=== PATIENT | male | born 1945 | race Caucasian/White ===

== ENCOUNTER 2023-12-23 12:23 | Emergency (ER) | payer OTHER, SELFPAY ==
[2023-12-23 12:31] VITALS: BP 158/74
[2023-12-23] MEDS: ULTRAM 50 MG PO (15:32)
[2023-12-23] MEDS: LIDOCAINE 4% PATCH 1 PATCH TOPICAL (15:33)
[2023-12-23] MEDS: TYLENOL 1000 MG PO (15:33)
--- NOTE | 2023-12-23 16:17 | ED.GENMED ---
History of Present Illness
General
Chief Complaint: Back Pain
Time Seen by Provider: 12/23/23 14:05
Travel History
Have you had any contact with someone who has COVID-19?: No
Do you have any symptoms of coronavirus? Fever > 100 degrees, chills, cough, shortness of breath, sore throat, loss of taste or smell, muscle aches, or headache?: No
History of Present Illness
History of Present Illness:
78-year-old male with history of aortic stenosis status post AVR, congestive heart failure, hypertension, and hyperlipidemia presents to the emergency department for evaluation of left-sided low back pain radiating to the left leg. Has been ongoing
for the past 1 to 2 weeks. States the pain is minimal when he is at rest but increases with walking and he feels as though his left leg may give out. He did have a fall onto his buttocks approximately 2 weeks ago and pain began after that time.
Denies any pain sitting still in the exam bed currently. Denies any loss of urinary continence or urine retention.
Past History
Past History
ED Past Medical History: NIDDM and Other (chronic neck pain)
ED Past Surgical History: Cardiac
Patient has exhibited threatening behavior?: No
PSI?: No
Social History
Tobacco: Non-smoker
Alcohol: Occasional
Drug: None
Personal:
Living: with family
Review of Systems
Review of Systems
Allergies reviewed?: Yes
All Other Systems: ROS reviewed and negative except as documented in HPI and ROS
Phy Exam
Physical Exam
Physical Exam:
GEN: Well appearing, NAD, WDWN
HEENT: Oral mucosa moist, no scleral icterus
Cardiac: Regular rate
Lung: No respiratory distress, no tachypnea
MSK: No gross deformity or injuries. No reproducible tenderness to the lumbar spine, positive straight leg raise on the left at 15 degrees
Skin: Good color, no pallor or jaundice, no rashes
Neuro: AO x3, moves all extremities freely
Psych: Calm, cooperative
Course
Orders/Labs/Results
Orders:
Orders
12/23/23 14:20
CR Lumbar Spine Comp Min 4 Vw* Urgent
Comment:
Reason For Exam: back pain after a fall
12/23/23 15:21
Acetaminophen [Tylenol] 1,000 mg PO NOW STA
Lidocaine [Lidocaine 4% Patch] 1 patch TOPICAL NOW STA
Tramadol HCl [Ultram] 50 mg PO NOW STA
Vital Signs
Initial and Last Documented VS:
Initial Vital Signs
Temp Pulse Resp BP Pulse Ox
97.6 F 70 18 158/74 97
12/23/23 12:31 12/23/23 12:31 12/23/23 12:31 12/23/23 12:31 12/23/23 12:31
Last Documented Vital Signs
Temp Pulse Resp BP Pulse Ox
97.6 F 70 18 158/74 97
12/23/23 12:31 12/23/23 12:31 12/23/23 12:31 12/23/23 12:31 12/23/23 12:31
MDM/Problems Addressed
MDM/Problems Addressed:
X-rays lumbar spine independently interpreted by me negative for acute osseous abnormality however significant degenerative changes noted. Symptoms most likely advertising account representative of lumbar radiculopathy due to potential disc herniation versus spinal
stenosis. Will start the patient on tramadol, NSAIDs are contraindicated given his chronic kidney disease and prior cardiac disease, will recommend outpatient orthopedic and physical therapy follow-up
*Critical Care Note
Total Time (30-74mins, 75-104mins- exclusive of procedures): Not Applicable
ED Attending Note
-
Portions of this chart may have been created with voice recognition software.� Occasional wrong word or��sound alike� substitutions may have occurred due to the inherent limitations of voice recognition software.
Discharge Plan
Departure
Patient Disposition: Home (Routine Discharge)
Date of Disposition: 12/23/23
Time of Disposition: 16:17
Patient with high blood pressure during this ER visit?: No
Discharge Problem:
Sciatica of left side
Instructions: Sciatica (DC)
Prescriptions:
New
tramadol 50 mg tablet
50 mg PO Q8H PRN (Reason: Pain) Qty: 10 0RF
No Action
pantoprazole 40 MG tablet,delayed release (DR/EC)
40 mg PO DAILY
aspirin 81 MG tablet,chewable
81 mg PO HS
furosemide 20 MG tablet
40 mg PO DAILY Qty: 60 0RF
Rx Instructions:
take 2 tabs (40 mg total)--start tomorrow 03/02/22
metoprolol succinate 25 mg Tablet Extended Release 24 Hr
12.5 mg PO BID Qty: 60 0RF
Januvia 50 mg Tablet
100 mg PO DAILY Qty: 60 0RF
docusate sodium [Colace] 100 mg capsule
100 mg PO BID Qty: 60 0RF
polyethylene glycol 3350 [Miralax] 17 gram/dose powder
4 g PO DAILY Qty: 119 0RF
Referrals:
Stephan Morales MD [Family Provider] -
John Parmar, DO [Non-Admitting Privileges] -
Activity Restrictions/Additional Instructions:
Follow-up with your primary care doctor as well as orthopedics/pain and spine to discuss next steps, you may benefit from a physical therapy referral
Interventions
Interventions:
*Risk Screen - Suicide Last Done: 12/23/23 12:31
*General Assessment Last Done: 12/23/23 12:31
*Neglect/Abuse Screening Last Done: 12/23/23 12:31
Discharge Date and Time
Print Language: CITIZEN OF [place]
== END 2023-12-23 16:36 | disposition home or self-care (01) ==
LOC: EMR 12:23
PROVIDERS: EMERGENCY PHYSICIAN Emergency Medicine; FAMILY PHYSICIAN Internal Medicine
DX: M54.42 Lumbago with sciatica, left side (principal); N18.9 Chronic kidney disease, unspecified
CPT/HCPCS: 99283; 72110

== ENCOUNTER → 2025-01-09 08:14 | Outpatient (REF) | payer OTHER, SELFPAY ==
[2025-01-09 09:48] LABS: Blood Urea Nitrogen 20 mg/dl (9-20); Calcium 9.1 mg/dl (8.4-10.2); Carbon Dioxide 27 mmol/L (22-30); Chloride 107 mmol/L (98-107); Glucose 134 mg/dl (70-99); HDL Cholesterol 35 mg/dl; LDL Cholesterol, Calculated 68 mg/dl; Potassium 5.1 mmol/L (3.5-5.1); Sodium 144 mmol/L (135-145); Total Cholesterol 139 mg/dl (50-199); Triglyceride 184 mg/dl (10-149); Very Low Density Lipoprotein 36 mg/dl (0-30); eGFR 47.36
[2025-01-09 10:30] LABS: Glycohemoglobin (HgbA1c) 6.7 % (4.0-5.6)
== END ==
LOC: REG 08:14
PROVIDERS: ATTENDING PHYSICIAN Internal Medicine Cardiovascular Disease; FAMILY PHYSICIAN Internal Medicine
DX: I50.32 Chronic diastolic (congestive) heart failure (principal); E78.5 Hyperlipidemia, unspecified; E11.9 Type 2 diabetes mellitus without complications
CPT/HCPCS: 36415; 80048; 80061; 83036

== ENCOUNTER 2025-06-13 13:01 | Inpatient (IN) | payer OTHER, SELFPAY ==
[2025-06-13] VITALS (8 sets, daily range): BP systolic 134–177; BP diastolic 63–88; BMI 37.7
--- NOTE | 2025-06-13 09:38 | ED.GENMED ---
History of Present Illness
<Pradip Campo PA-C - Last Filed: 06/13/25 14:37>
General
Chief Complaint: Rectal Bleeding
Source: patient
Time Seen by Provider: 06/13/25 09:24
History of Present Illness
History of Present Illness:
79-year-old male with past medical history of previous [place], aortic stenosis, valvular disease status post aortic valve replacement, CHF, GERD, fyu-uhaygvr-enqaiyafs diabetes presenting to the emergency department for evaluation of 4 episodes of
bright red blood per rectum since 2 AM, last being approximately 1 hour prior to arrival to the emergency department. Patient states he is not having any pain associated with this, denies any history of similar. Patient is on three 81 mg aspirin
tablets per day but no other anticoagulant medications. Currently denying any chest pain, shortness of breath, palpitations, diaphoresis, exertional dyspnea, orthopnea, abdominal pain, nausea, vomiting, hematemesis. He notes that he has had
colonoscopies before without any abnormal findings reported. Social history was noted for quitting smoking in the 1960s.
Past History
<Pradip Campo PA-C - Last Filed: 06/13/25 14:37>
Past History
ED Past Medical History: CAD, CHF, HTN, Hypercholesterolemia, NIDDM, [place], Valvular disease and Other (chronic neck pain)
ED Past Surgical History: Cardiac and Other
Patient has exhibited threatening behavior?: No
PSI?: No
Social History
Tobacco: Former smoker
Alcohol: None
Drug: None
Personal:
Living: with family
Review of Systems
<Pradip Campo PA-C - Last Filed: 06/13/25 14:37>
Review of Systems
All Other Systems: ROS reviewed and negative except as documented in HPI and ROS
Phy Exam
<Pradip Campo PA-C - Last Filed: 06/13/25 14:37>
Physical Exam
Physical Exam:
GENERAL: Alert , in no apparent distress
EYE: clear conjunctiva b/l
HEAD: NCAT
ENT: mmm.
CARDIAC: Regular rate and rhythm .
LUNGS: Clear breath sounds bilaterally, no acute respiratory distress, no wheezes/rales/rhonchi
ABDOMEN: Soft, without focal tenderness, no r/g, no cvat
RECTAL EXAM: Maroon blood, no stool, no external hemorrhoids
NEUROLOGICAL: Alert and oriented
SKIN: Warm and dry, skin intact.
MUSCULOSKELETAL: No edema, well perfused.
PSYCH: Normal and appropriate interaction.
Scores
<Pradip Campo PA-C - Last Filed: 06/13/25 14:37>
Heart Failure Risk
Heart Failure Risk Score: Not Applicable
Heart Score for Chest Pain Patients
STEMI patient?: Not applicable
Withdrawal Assessment of Alcohol
Withdrawal Assessment Completed?: Not applicable
Course
<Pradip Campo PA-C - Last Filed: 06/13/25 14:37>
Orders/Labs/Results
Orders:
Orders
06/13/25 09:37
CT Angio Abd/Pelvis w/wo IV [CT Abd/pelvis Angio W/wo Iv] Urgent
Comment:
Reason For Exam: multiple episodes BRBPR
06/13/25 09:38
Cardiac Monitoring- Treatment ONCE
06/13/25 09:51
Type+Screen Urgent
Complete Blood Count/With Diff Urgent
Comprehensive Metabolic Panel Urgent
NT-proBNP Urgent
Comment: ADD ON
PTT Urgent
Prothrombin Time Urgent
TSH Urgent
Comment: ADD ON
06/13/25 12:34
Add On- LAB Routine
Tests Added?: NT-proBNP
06/13/25 12:36
Admit/Transfer Patient As Directed
Co-Sign Provider:
Level of Care: Inpatient admission
Assign to:: Telemetry
Physician / Group: Roopa
Diagnosis: Acute lower GI bleed, acute CHF
Reason for Telemetry: Subacute Heart Failure
Date to Stop Telemetry: 06/15/25
Time to Stop Telemetry: 11:00
Reason for Hospitalization: GI bleed, IV Lasix
Expected length of stay greater than two midnights?: Yes
ELOS- Estimated Length of Stay in days: 3
I certify the patient meets the requirements for IP care: Yes
06/13/25 12:37
PRN Pain Medication Management As Directed
May give lesser potent ordered pain med per pt: Yes
preference::
Protocol:: Medication orders for pain may be administered in a
manner that supports deferring to patient preference
when the pt is:
- Requesting an ordered lesser potent pain medication.
Least to most potent pain medications are defined
as: acetaminophen < NSAID < tramadol < opioids
(morphine, oxycodone, hydromorphone).
- Requesting a lesser dose of the same medication IF
ORDERED.
- Requesting a less intrusive route of administration
if both routes are prescribed by the provider (PO <
IV).
06/13/25 12:38
Code Status As Directed
Resuscitation Status: Full Code
06/13/25 12:50
Furosemide [Lasix] 40 mg IV NOW STA
06/13/25 12:52
Add On- LAB Routine
Tests Added?: TSH
06/13/25 12:54
EKG [Electrocardiogram (*1)] Routine
Reason for Study: Shortness of Breath
06/15/25 11:00
DC Protocol for Telemetry ONCE
Abnormal Lab Results
06/13/25
09:51
WBC 11.9 H 10^3/uL
(4.8-10.8)
MCHC 32.4 L g/dL
(33.0-37.0)
RDW 14.8 H %
(11.5-14.5)
Absolute Neuts (auto) 9.2 H 10^3/uL
(1.4-6.5)
Absolute Monos (auto) 0.8 H 10^3/uL
(0.1-0.6)
Neutrophils % 77.5 H %
(42.2-75.2)
Lymphocytes % 12.7 L %
(20.5-51.1)
Chloride 109 H mmol/L
(98-107)
Creatinine 1.4 H mg/dL
(0.7-1.3)
Glucose 170 H mg/dl
(70-99)
06/13/25 09:51
06/13/25 09:51
Vital Signs
Initial and Last Documented VS:
Initial Vital Signs
Temp Pulse Resp BP Pulse Ox
98.4 F 79 16 148/72 95
06/13/25 09:17 06/13/25 09:17 06/13/25 09:17 06/13/25 09:17 06/13/25 09:17
Last Documented Vital Signs
Temp Pulse Resp BP Pulse Ox
98.4 F 71 16 134/64 93
06/13/25 09:17 06/13/25 14:30 06/13/25 14:30 06/13/25 13:41 06/13/25 10:30
<Christian Elam, DO - Last Filed: 06/13/25 10:18>
Orders/Labs/Results
Orders:
Orders
06/13/25 09:37
CT Angio Abd/Pelvis w/wo IV [CT Abd/pelvis Angio W/wo Iv] Urgent
Comment:
Reason For Exam: multiple episodes BRBPR
06/13/25 09:38
Cardiac Monitoring- Treatment ONCE
06/13/25 09:51
Type+Screen Urgent
Complete Blood Count/With Diff Urgent
Comprehensive Metabolic Panel Urgent
NT-proBNP Urgent
Comment: ADD ON
PTT Urgent
Prothrombin Time Urgent
TSH Urgent
Comment: ADD ON
06/13/25 12:34
Add On- LAB Routine
Tests Added?: NT-proBNP
06/13/25 12:36
Admit/Transfer Patient As Directed
Co-Sign Provider:
Level of Care: Inpatient admission
Assign to:: Telemetry
Physician / Group: Roopa
Diagnosis: Acute lower GI bleed, acute CHF
Reason for Telemetry: Subacute Heart Failure
Date to Stop Telemetry: 06/15/25
Time to Stop Telemetry: 11:00
Reason for Hospitalization: GI bleed, IV Lasix
Expected length of stay greater than two midnights?: Yes
ELOS- Estimated Length of Stay in days: 3
I certify the patient meets the requirements for IP care: Yes
06/13/25 12:37
PRN Pain Medication Management As Directed
May give lesser potent ordered pain med per pt: Yes
preference::
Protocol:: Medication orders for pain may be administered in a
manner that supports deferring to patient preference
when the pt is:
- Requesting an ordered lesser potent pain medication.
Least to most potent pain medications are defined
as: acetaminophen < NSAID < tramadol < opioids
(morphine, oxycodone, hydromorphone).
- Requesting a lesser dose of the same medication IF
ORDERED.
- Requesting a less intrusive route of administration
if both routes are prescribed by the provider (PO <
IV).
06/13/25 12:38
Code Status As Directed
Resuscitation Status: Full Code
06/13/25 12:50
Furosemide [Lasix] 40 mg IV NOW STA
06/13/25 12:52
Add On- LAB Routine
Tests Added?: TSH
06/13/25 12:54
EKG [Electrocardiogram (*1)] Routine
Reason for Study: Shortness of Breath
06/15/25 11:00
DC Protocol for Telemetry ONCE
Abnormal Lab Results
06/13/25
09:51
WBC 11.9 H 10^3/uL
(4.8-10.8)
MCHC 32.4 L g/dL
(33.0-37.0)
RDW 14.8 H %
(11.5-14.5)
Absolute Neuts (auto) 9.2 H 10^3/uL
(1.4-6.5)
Absolute Monos (auto) 0.8 H 10^3/uL
(0.1-0.6)
Neutrophils % 77.5 H %
(42.2-75.2)
Lymphocytes % 12.7 L %
(20.5-51.1)
Chloride 109 H mmol/L
(98-107)
Creatinine 1.4 H mg/dL
(0.7-1.3)
Glucose 170 H mg/dl
(70-99)
06/13/25 09:51
06/13/25 09:51
Vital Signs
Initial and Last Documented VS:
Initial Vital Signs
Temp Pulse Resp BP Pulse Ox
98.4 F 79 16 148/72 95
06/13/25 09:17 06/13/25 09:17 06/13/25 09:17 06/13/25 09:17 06/13/25 09:17
Last Documented Vital Signs
Temp Pulse Resp BP Pulse Ox
98.4 F 71 16 134/64 93
06/13/25 09:17 06/13/25 14:30 06/13/25 14:30 06/13/25 13:41 06/13/25 10:30
<Pradip Campo PA-C - Last Filed: 06/13/25 14:37>
MDM/Problems Addressed
Differential Diagnosis Includes:
Internal versus external hemorrhoidal bleeding
Diverticular bleed
Erosive gastritis
Peptic ulcer disease
Anemia
Mesenteric ischemia
Colitis
MDM/Problems Addressed:
79-year-old male presenting to the emergency department for evaluation of 4 episodes of bright red blood per rectum since 2 AM, no pain, currently hemodynamically stable and in no acute distress. Will check labs, CT angio of the abdomen and pelvis
ordered for possible active GI bleeding. Will closely monitor patient. Anticipate admission given age and amount of blood reported
Chronic conditions affecting care: CAD
<Pradip Campo PA-C - Last Filed: 06/13/25 14:37>
*Radiology
Radiology exam reviewed: radiology read reviewed
*Pulse Oximetry
SaO2: 95
Oxygen Mode of Delivery: Room air
Patient hypoxic: no
*Critical Care Note
Total Time (30-74mins, 75-104mins- exclusive of procedures): Not Applicable
Data Reviewed
Review of Other/Old Records Reveals: Records
Source: patient, records and family
<Pradip Campo PA-C - Last Filed: 06/13/25 14:37>
Comment
Comment:
Patient had a colonoscopy here in May 2023 which showed the following:
Findings:
The perianal and digital rectal examinations were normal.
A 3 mm polyp was found in the ascending colon. The polyp was sessile.
The polyp was removed with a jumbo cold forceps. Resection and retrieval
were complete. Estimated blood loss was minimal.
Multiple small-mouthed diverticula were found in the sigmoid colon and
descending colon.
Internal hemorrhoids were found during retroflexion. The hemorrhoids
were small.
The exam was otherwise without abnormality.
Patient Management
Discussion with other providers: Hospitalist and [employer]
Escalation/DeEscalation of care consider admission/obs:
Patients work up reassuring however given age, high dose ASA and multiple episodes of BRBPR decision was made to closely observe patient. I still have high degree of suspicion for diverticular bleed and suspect patient will have a drop in hgb over
next 24 hours. GI team aware and will see in consult. Hospitalist team to admit
ED Attending Note
<Pradip Campo PA-C - Last Filed: 06/13/25 14:37>
-
Portions of this chart may have been created with voice recognition software.� Occasional wrong word or��sound alike� substitutions may have occurred due to the inherent limitations of voice recognition software.
<Christian Elam DO - Last Filed: 06/13/25 10:18>
ED Attending Note
Patient seen and examined by attending physician: Yes
I performed the substantive portion of visit, reviewed & personally made and approve the management plan that is documented in note by myself or DONOVAN.: Yes
ED Attending Note:
I agree with Facundo's note
Patient presents after having several episodes of bright red blood per rectum. No abdominal pain. No chest pain shortness of breath or dizziness. Patient has been taking 225 aspirin twice a day for back pain
General: Awake, Alert, Oriented X3. No acute distress.
Vitals: unremarkable
Head: Atraumatic
Eyes: Pupils equal, EOMI
Throat: Airway intact, no exudates
Neck: Trachea midline
Lungs: Clear and equal b/l
Heart: Regular rate, no murmurs
Abd: Soft, large protuberant abdomen which is nontender, No pulsatile mass
Neuro: Nonfocal
Extremities: pulses equal b/l, 2+ edema
Type and screen, CT angio to exclude active bleeding.
Discharge Plan
Departure
Patient Disposition: Admit
Date of Disposition: 06/13/25
Time of Disposition: 11:36
Presentation/result/management discussed w/ accepting MD/DO: Hospitalist
Discharge Problem:
Acute gastrointestinal bleeding
Interventions
Interventions:
*Risk Screen - Suicide Last Done: 06/13/25 09:17
*General Assessment Last Done: 06/13/25 09:55
*Neglect/Abuse Screening Last Done: 06/13/25 09:17
*ED- Fall Risk Assessment Last Done: 06/13/25 09:55
*ED COVID-19 Vaccine History Last Done: 06/13/25 09:55
*ED Influenza Vaccine History Last Done: 06/13/25 09:55
MW-Siyvuh-Vldmybnilv Assessment Last Done: 06/13/25 09:55
ED- Cardiac Assessment Last Done: 06/13/25 09:55
ED- Pulmonary Assessment Last Done: 06/13/25 09:55
[2025-06-13 09:59] LABS: Hematocrit 45.0 % (39.0-52.0); Hemoglobin 14.6 g/dL (13.0-18.0); Mean Corp Hgb Conc. 32.4 g/dL (33.0-37.0); Mean Corpuscular Volume 85.9 fL (80.0-94.0); Nucleated Red Blood Cells % 0 % (-); Platelet Count 248 10^3/uL (130-400); Red Cell Dist. Width 14.8 % (11.5-14.5)
[2025-06-13 10:19] LABS: INR 0.98; PT 13.5 Sec (11.4-14.6)
[2025-06-13 10:20] LABS: APTT 29.8 Sec (23.4-35.0)
[2025-06-13 10:25] LABS: ALT (SGPT) 22 U/L (0-50); AST (SGOT) 20 U/L (17-59); Albumin 4.2 g/dl (3.5-5.0); Alkaline Phosphatase 100 U/L (38-126); Calcium 8.6 mg/dl (8.4-10.2); Carbon Dioxide 23 mmol/L (22-30); Chloride 109 mmol/L (98-107); Glucose 170 mg/dl (70-99); Potassium 4.7 mmol/L (3.5-5.1); Sodium 140 mmol/L (135-145); Total Protein 7.2 g/dl (6.3-8.2); eGFR 51.45
[2025-06-13 10:57] LABS: Blood Urea Nitrogen 19 mg/dl (9-20)
--- NOTE | 2025-06-13 12:02 | CON.GI ---
Addendum entered and electronically signed by Bindu Cruz MD 06/13/25 16:00:
He was on pantoprazole prior to admission and did not stop it while he was taking the aspirin also will continue
Addendum entered and electronically signed by Bindu Cruz MD 06/13/25 15:58:
I saw and examined the patient.
The LOAN MANAGER's note was reviewed and I agree with the note.
Comment: This is a 79-year-old male with past medical history as listed below presented with symptoms of painless rectal bleeding since last night he had 4 episodes of rectal bleeding and presented to the ER. He has been taking aspirin 325 mg twice
daily for the past 2 weeks because of joint pains. He currently denies any symptoms of dyspepsia, no belching, no abdominal pain, no nausea vomiting or hematemesis. On admission his hemoglobin was stable at 14.6 and his BUN was 19 and his INR is
normal also. He just now had another bowel movement which he says was brown. He sees Dr. Landaverde in the office and had a colonoscopy and endoscopy in May 2023. The endoscopy was done with Dr. Landaverde for dysphagia symptoms and was pretty
unremarkable other than gastric polyps which were benign and esophageal biopsies were negative for EOE. His colonoscopy had to be performed the next day because he was not cleaned out and that was done with Dr. Deluca and he had a diminutive
ascending colon polyp which was a tubular adenoma, diverticulosis in the sigmoid and descending colon and internal hemorrhoids.
Assessment and plan painless rectal bleeding 3-4 episodes since last night most likely related to diverticulosis exacerbated by the recent use of aspirin 325 twice daily for 2 weeks. He denies constipation prior to admission or straining. Doubt
upper GI bleed he is hemodynamically stable, BUN is normal, hemoglobin is normal no dyspepsia sx. Will start him on Protonix because of the recent excessive use of aspirin it is possible that he may have gastritis or PUD. CT on admission was also
negative for active bleeding
2. gallstones noted on CTA currently asymptomatic from it
3. He also had a 1.3 cm pulmonary nodule follow-up with PCP for outpatient CT chest to follow-up on this.
Original Note:
Consultation
-
Date/Time Consultation Requested: 06/13/251129
Date/Time Consultation Performed: 06/13/25 1145
Requesting Provider: CAROLINA Hsu
Performing Provider: Dr. Cruz/Tito Richter
Reason for Consultation: GI bleed
Medical History
Chief Complaint / HPI
Chief Complaint: increased LFT's
History of Present Illness:
79 yo presents with hx NIDDM, ASCVD, with prior AVR, chronic lower extremity edema, medication noncompliance, abdominal distention sciatica, CHF, chronic back pain, adenomatous colon polyps, fatty liver on ultrasound 2022, cholelithiasis who
presents to the emergency room with bright red blood per rectum. Asked to evaluate for the same. The patient states that he has been having issues with his left foot 'giving out on him'. He sought the assistance of a chiropractor in [place]. It
was recommended that he take Tylenol. Unfortunately he took aspirin 325 mg twice a day for the past 2 weeks instead. He usually has a soft formed daily bowel movement once to twice a day. He states yesterday he had a solid bowel movement however
he got up at 11 PM last night with the urgency to have a bowel movement. He states that this was solid with then loose brown stool with bright red blood mixed in it. He then had 3-4 episodes of just bright red blood since that time. They were
able to show me pictures that it was just bright red blood. Some small clots within it. He did have an episode of some lightheadedness with the fourth episode this morning. At that point they proceeded to come to the emergency room for further
evaluation. The patient denied any prior history of rectal bleeding prior to this. The patient had both endoscopy and colonoscopy in May 2023. Colonoscopy revealed a small tubular adenoma and diverticulosis in the sigmoid, descending and
transverse colon. Endoscopy was performed for dysphagia. Blood was found in the esophagus, 1 cm hiatal hernia. Normal esophagus. Normal stomach. Multiple gastric polyps which were biopsied. Normal examined duodenum. The patient has had no
further episodes of bleeding since arrival. Baseline hemoglobin is usually in the 13-14 range. Currently labs WBC 11.9, hemoglobin 14.6, hematocrit 45.0, platelets 248, PT 13.5, INR 0.98, sodium 140, potassium 4.7, BUN 19, creatinine 1.4, glucose
170, total bilirubin 1.1, AST 20, ALT 20, alk phos 100, proBNP pending. Patient does not take his medications as prescribed. He states he last took his diuretic over a week ago. He does have lower extremity edema. CT angio abdomen and pelvis
shows no evidence for active GI bleeding. Colonic diverticulosis. Cholelithiasis. 1.3 cm solid pulmonary nodule in the right middle lobe. Recommend follow-up chest CT on routine basis. The patient quit smoking and drinking in 1985. Other than
the aspirin no other NSAIDs.
Past Medical History
Past Medical History: Arrhythmias (afib post -op isolated ), CHF, HTN, NIDDM and Other (ASCVD, aortic stenosis, obesity, fatty liver)
Past Surgical History: Cardiac (AVR)
Social History
Tobacco: Non-Smoker
Alcohol: Other (some ETOH years ago none currently)
Personal:
Living: With Family
Employment: Retired
Family History
Family History: Other (father with colon CA)
Allergies / Home Medications
Allergy/AdvReac Type Severity Reaction Status Date / Time
shellfish derived Allergy Swelling Verified 06/13/25 09:16
�Medication �Instructions �Recorded
aspirin 325 mg tablet 325 mg PO BID 06/13/25
atorvastatin 80 mg tablet (Lipitor) 80 mg PO QPM 06/13/25
dapagliflozin propanediol 10 mg 10 mg PO DAILY 06/13/25
tablet (Farxiga)
glimepiride 1 mg tablet 1 mg PO DAILY 06/13/25
pantoprazole 40 mg tablet,delayed 40 mg PO DAILY 06/13/25
release (Protonix)
Review of Systems
-
All other systems: A 12 pt ROS was Negative except as stated above in HPI
Vital Signs
Temp Pulse Resp BP Pulse Ox
98.4 F 68 19 141/71 93
06/13/25 09:17 06/13/25 10:30 06/13/25 10:30 06/13/25 10:00 06/13/25 10:30
Physical Exam
Exam
General: No Apparent Distress
HEENT: Anicteric
Respiratory: Clear
Cardiac: Regular Rhythm
GI: Non Tender, Normal Bowel Sounds and Distended (Softly distended (patient states this is his usual))
Musculoskeletal: Edema (+1 bilateral lower extremity edema)
Skin: Warm and Dry
Neuro: AO x 3
Psych: Calm
Results
WBC 11.9 10^3/uL (4.8-10.8) H 06/13/25 09:51
Hgb 14.6 g/dL (13.0-18.0) 06/13/25 09:51
Hct 45.0 % (39.0-52.0) 06/13/25 09:51
MCV 85.9 fL (80.0-94.0) 06/13/25 09:51
Plt Count 248 10^3/uL (130-400) 06/13/25 09:51
Absolute Neuts (auto) 9.2 10^3/uL (1.4-6.5) H 06/13/25 09:51
PT 13.5 Sec (11.4-14.6) 06/13/25 09:51
INR 0.98 06/13/25 09:51
APTT 29.8 Sec (23.4-35.0) 06/13/25 09:51
Sodium 140 mmol/L (135-145) 06/13/25 09:51
Potassium 4.7 mmol/L (3.5-5.1) 06/13/25 09:51
Chloride 109 mmol/L (98-107) H 06/13/25 09:51
Carbon Dioxide 23 mmol/L (22-30) 06/13/25 09:51
BUN 19 mg/dl (9-20) 06/13/25 09:51
Creatinine 1.4 mg/dL (0.7-1.3) H 06/13/25 09:51
Calcium 8.6 mg/dl (8.4-10.2) 06/13/25 09:51
Total Bilirubin 1.1 mg/dl (0.2-1.3) 06/13/25 09:51
AST 20 U/L (17-59) 06/13/25 09:51
ALT 22 U/L (0-50) 06/13/25 09:51
Alkaline Phosphatase 100 U/L (38-126) 06/13/25 09:51
Diagnostic Image Results:
CTA abdomen and pelvis:No CTA evidence for active gastrointestinal bleeding during the course of this exam.
Colonic diverticulosis.
Cholelithiasis.
1.3 cm solid pulmonary nodule in the right middle lobe. Recommend initial follow-up with a chest CT on a routine basis.
Prior GI Procedures:
EGD: 05/30/2023 ([facility]) - Bleb found in the esophagus.
- 1 cm hiatal hernia.
- Normal esophagus.
- Normal stomach.
- Multiple gastric polyps. Biopsied. Negative H. pylori. Fundic gland polyp.
- Normal examined duodenum.
- Biopsies were taken with a cold forceps for
evaluation of eosinophilic esophagitis. Path negative EOE.
Colonoscopy: 05/31/2023 ([facility]_ - One 3 mm polyp in the ascending colon, removed with
a jumbo cold forceps. Resected and retrieved. Path: Tubular adenoma
- Diverticulosis in the sigmoid colon and in the
descending colon.
- Internal hemorrhoids.
- The examination was otherwise normal.
Assessment / Plan
-
79 yo presents with hx NIDDM, ASCVD, with prior AVR, chronic lower extremity edema, medication noncompliance, abdominal distention, sciatica, CHF, chronic back pain, adenomatous colon polyps, fatty liver on ultrasound 2022, cholelithiasis who
presents to the emergency room with bright red blood per rectum. Asked to evaluate for the same. Patient hemoglobin 14.6, vital signs stable. CTA abdomen and pelvis without signs of active bleeding. Up-to-date with EGD and colonoscopy (05/2023).
Diverticulosis sigmoid, transverse and descending colon. Recent significant aspirin use 325 mg twice daily x 2 weeks for orthopedic discomfort. Noncompliant with outpatient home medications. Does not take any PPI, Pepcid or Tums as an outpatient.
Impression:
GI bleed, red blood per rectum-> negative CTA (likely diverticular, possible angioectasias given history of aortic stenosis, less likely upper GI bleed given normal BUN)
Recent aspirin use, 325 mg twice daily x 2 weeks
Plan:
- Patient to be admitted to medical service
- Trend hemoglobin
- Start pantoprazole 40 mg daily
- Okay for clear liquids, no red
- Discussed with patient medication compliance.
- Will hold on any endoscopic procedures at present time, normal BUN.
- Further recommendations to be forthcoming
-
-
Thank you for consultation and allowing me to participate in the patient's care. Please call the continuity coordinator GI physician during the after hours with any questions or concerns.
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
[2025-06-13] MEDS: LASIX 40 MG IV (13:39)
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
--- NOTE | 2025-06-13 14:06 | CM ---
Patient seen at bedside with patient and son in ED. Patient states that he lives in a 2 story home and that he has a walker but does not use it. Patient has no PCP as the previous PCP retired and he has not found one that is 'mature'. Patient
agreed to accept list of options for PCP. Patient pharmacy is the [facility] on [address] in [place]. Patient indicated that he was independent of ADL's and IADL's. Patient plan is to eat soon and go home with no needs. CM will continue to follow for
discharge planning needs.
Plan; home with no needs; watch for VN needs pending medical treatment plan
[2025-06-13 15:39] LABS: TSH 1.69 uIU/ml (0.47-4.68)
[2025-06-13] MEDS: LIPITOR 80 MG PO (17:21)
[2025-06-13] MEDS: NOVOLOG FLEXPEN-LOW RESISTANCE SC (17:31)
[2025-06-13 17:44] LABS: Glucose - Point of Care 131 mg/dl (70-99)
--- NOTE | 2025-06-13 19:24 | W.PN.UPDATE ---
Update Note
Progress Note Update
79-year-old man admitted with hematochezia. He has been taking 650 mg of aspirin twice daily. Very pleasant but tangential and difficult to redirect, apparently had been taking Tylenol and then switched to aspirin because 'his left leg would go
out' associated with 5-10 falls over the last few months.
Also family has noted dyspnea on exertion
PMH/PSH: CABG/AVR for CAD and aortic stenosis 2019, prior myocardial infarction, remote paroxysmal A-fib, hypertension, hyperlipidemia, CKD, type 2 diabetes, HFpEF, right bundle branch block, cognitive impairment
Outpatient meds: Aspirin 325 mg 2 twice daily, atorvastatin 80 mg nightly, Farxiga, glimepiride, pantoprazole, furosemide has been prescribed but not taken. Family states he is noncompliant with medications
158/74, pulse 73, respiratory rate 18, afebrile, weight is 125.8 kg , in 2022 weight was 112.7 kg, pleasant, tangential very obese with protuberant abdomen, no distress, lungs are fairly clear, regular rate and rhythm without murmurs gallops,
abdomen obese, extremity 2+ to 3+ edema
CT of abdomen and pelvis 06/13/2025 cholelithiasis, renal cortical thinning, aortic atherosclerosis, diverticulosis, no obvious GI bleeding source identified with contrast
Echo January 2023: EF 65-70%, no LVH, normal diastolic function, dilated right ventricle, low normal RV systolic function, MAC, mild MR, bioprosthetic aortic valve, peak/mean gradient 19/9 mmHg, could not determine pulmonary artery pressure.
White count 11.9, hemoglobin 14.6, platelets 248, BUN/creatinine 19 and 1.4, potassium 4.7, proBNP 90
ECG: Pending
Impression:
Suspected acute on chronic presumably predominantly right heart failure, preserved LVEF
Hematochezia likely related to diverticulosis and aspirin
CAD/CABG/bioprosthetic aortic valve 2018
History of myocardial infarction
CKD IIIa
Diabetes
Hyperlipidemia
Hypertension
Postoperative atrial fibrillation
History of right bundle branch block
Likely cognitive impairment
Plan:
He presents with hematochezia likely related to aspirin ingestion. Will defer to hospitalist and GI regarding best management strategy. From cardiac standpoint, I would like him on aspirin 81 mg a day given his history of CABG.
Suspect underlying cognitive impairment, defer to hospitalist as to whether this needs to be investigated further. Likely a chronic issue.
He also presents with significant weight gain and presumed predominantly right heart failure based on his echo and normal proBNP. proBNP may be falsely normal in the setting of morbid obesity.
Agree with IV furosemide. Will check echo. As outpatient he was on dapagliflozin. Could be considered for spironolactone as well. Baseline creatinine is 1.4 with a potassium of 4.7.
His atrial fibrillation was postoperative only following CABG and AVR, likely does not require intervention. Will review EKG.
With regards to his left lower extremity issues, this sounds neuropathic, and was the reason for him taking aspirin apparently. Defer to hospitalist regarding whether this requires further evaluation.
Suspect long-term compliance may be an issue.
[2025-06-13 21:53] LABS: Glucose - Point of Care 182 mg/dl (70-99)
--- NOTE | 2025-06-13 23:04 | PTCARENOTE ---
BP was taken with a Dynamap, 177/80. TT house provider. Pt had nothing in MAR ordered for BP. Waited one hour and retook BP manually, 164/68. TT house provider again. No new orders given at this time.
[2025-06-14] VITALS (9 sets, daily range): BP systolic 108–186; BP diastolic 63–82; PULSE 71; O2SAT 95; BMI 36.1
--- NOTE | 2025-06-14 03:03 | PTCARENOTE ---
Addendum entered by Kendy Millan 06/14/25 03:56:
BP one hour later 152/64, taken manually. House provider TT. No new orders at this time.
Original Note:
BP 186/82, taken by dynamap. Manual BP was taken, 184/66. TT house provider. Told to recheck BP in one hour. No new orders given at this time. This is the second high BP for the pt within the past 4 hours.
[2025-06-14 05:44] LABS: Hematocrit 42.2 % (39.0-52.0); Hemoglobin 13.3 g/dL (13.0-18.0); Mean Corp Hgb Conc. 31.5 g/dL (33.0-37.0); Mean Corpuscular Volume 85.9 fL (80.0-94.0); Nucleated Red Blood Cells % 0 % (-); Platelet Count 223 10^3/uL (130-400); Red Cell Dist. Width 14.8 % (11.5-14.5)
[2025-06-14 06:00] LABS: Troponin I < 0.012 ng/ml
[2025-06-14 06:01] LABS: Blood Urea Nitrogen 25 mg/dl (9-20); Calcium 8.6 mg/dl (8.4-10.2); Carbon Dioxide 27 mmol/L (22-30); Chloride 106 mmol/L (98-107); Estimated Creatinine Clearance 60 ml/min; Glucose 126 mg/dl (70-99); Potassium 4.7 mmol/L (3.5-5.1); Sodium 139 mmol/L (135-145); eGFR 51.45
[2025-06-14 08:17] LABS: Glucose - Point of Care 130 mg/dl (70-99)
[2025-06-14] MEDS: NOVOLOG FLEXPEN-LOW RESISTANCE SC ×2 (09:00→16:55)
[2025-06-14] MEDS: ASPIR LOW (ENTERIC COATED) 81 MG PO (09:01)
[2025-06-14] MEDS: FARXIGA 10 MG PO (09:01)
[2025-06-14] MEDS: LASIX 40 MG IV (09:01)
[2025-06-14] MEDS: PROTONIX 40 MG PO (09:01)
[2025-06-14 10:37] LABS: Glycohemoglobin (HgbA1c) 7.1 % (4.0-5.6)
--- NOTE | 2025-06-14 10:38 | CARDSERVLU ---
Echocardiogram with [facility]ason completed after protocol screening completed. Allergies verified.
Patent IV site: _Right arm 18 G PC____
IV site flushed with 0.9% NaCl pre and post administration.
Diluted bolus method utilized to enhance visualization of ventricular deutsch.
Total volume given: ___5_ mL
Patient tolerated all procedures well without complications.
--- NOTE | 2025-06-14 11:15 | W.PN.HOSP.TC ---
Today's Communication/Plan
-
Continue Lasix
Advance diet
Echocardiogram
Assessment / Plan
Assessment / Plan
Gen-AAOx3, NAD
HEENT-NC, AT, anicteric, clear oral mm
Neck-supple
CV-reg, no M, +S1/S2
Lungs-clear B/L
Abd-soft, NT, ND
Ext-bilateral lower extremity edema
Musculoskeletal-no cyanosis, clubbing
Skin-warm and dry
Neuro-grossly non-focal
Psych-calm, cooperative
Acute lower GI bleed - Suspect etiology is high dose aspirin use as well as bleeding related to either diverticulosis or hemorrhoids.
CTA done today in the emergency room negative for active bleeding. Hemodynamically stable. Hemoglobin stable overnight, 13.3.
Spoke with GI, no plans for endoscopic evaluation. Advance to solid food.
Acute on chronic heart failure with preserved EF -due to noncompliance with home diuretics. Looks grossly volume overloaded. Mildly tachypneic. Clinically improving on IV Lasix, weight trending down. Lower extremity edema improving.
Last echocardiogram done in January 2023 showed LVEF 65 to 70%, normal regional wall motion, mild concentric LVH, bioprosthetic aortic valve.
Follow I's and O's, daily weights.
Echocardiogram done this morning, report pending. Cardiology following.
BNP is normal but could be suppressed in the setting of obesity.
Postoperative atrial fibrillation -this was noted after AVR and CABG. Decision made at the time not to anticoagulate. According to last cardiology note, patient maintaining sinus rhythm and will keep off anticoagulation for now unless atrial
fibrillation recurs.
Check EKG.
Bioprosthetic AVR
CKD 3a -stable.
CAD/CABG -stable.
DM 2 with hyperglycemia - hemoglobin A1c 7.1%. He has been on Farxiga and glimepiride prior to admission. Hold glimepiride and use low resistance NovoLog scale.
Essential hypertension -stable.
Hyperlipidemia -atorvastatin.
Obesity due to excess calories
Full code
PT/OT -Home health recommended.
Anticipated Discharge: Within 24 hours
Subjective/Interval History
-
Date of Service: June 14, 2025
Patient seen and examined. No complaints.
Objective Data
-
Labs:
Laboratory Results
06/14/25
05:19
WBC 11.2 H
Hgb 13.3
Hct 42.2
Plt Count 223
Sodium 139
Potassium 4.7
Chloride 106
Carbon Dioxide 27
BUN 25 H
Creatinine 1.4 H
Glucose 126 H
Calcium 8.6
Vital Signs:
Vital Signs
Temp Pulse Resp BP Pulse Ox
98 F 84 16 162/73 97
06/14/25 08:11 06/14/25 08:11 06/14/25 08:11 06/14/25 08:11 06/14/25 08:11
I&O
06/13/25 06/14/25 06/15/25
06:59 06:59 06:59
Intake Total 480 / 480
Output Total 300 / 300
Balance 180 / 180
Review of Systems
-
History Source: Patient
All other systems: Reviewed and negative
[2025-06-14 12:04] LABS: Glucose - Point of Care 164 mg/dl (70-99)
[2025-06-14] MEDS: NOVOLOG FLEXPEN-LOW RESISTANCE 1 UNITS SC (12:29)
--- NOTE | 2025-06-14 13:11 | W.PN.CARDCBS ---
Addendum entered and electronically signed by Virgilio Doshi MD 06/14/25 17:57:
79-year-old man admitted with hematochezia. He has been taking 650 mg of aspirin twice daily. Very pleasant but tangential and difficult to redirect, apparently had been taking Tylenol and then switched to aspirin because 'his left leg would go
out' associated with 5-10 falls over the last few months.
Also family has noted dyspnea on exertion
PMH/PSH: CABG/AVR for CAD and aortic stenosis 2019, prior myocardial infarction, remote paroxysmal A-fib, hypertension, hyperlipidemia, CKD, type 2 diabetes, HFpEF, right bundle branch block, cognitive impairment
Current meds: Atorvastatin 80 mg a day, dapagliflozin 10 mg a day, pantoprazole 40 mg a day, 40 mg IV daily, aspirin 81 mg a day
162/73, pulse 87, respiratory rate 16, afebrile, weight is 120.8 kg, if accurate down 5 kg, intake and output incomplete, no distress, states edema is somewhat better, exam unremarkable, lungs are clear, pleasant, regular rate and rhythm, no obvious
murmurs, abdomen obese, extremities with 1+ edema
White count 11.2, hemoglobin is 13.3, platelets are 223, BUN and creatinine are 25 and 1.4, stable, troponin is undetectable, proBNP was 90
Echo: Pending
Impression:
Suspected acute on chronic presumably predominantly right heart failure, preserved LVEF
Hematochezia likely related to diverticulosis and aspirin
CAD/CABG/bioprosthetic aortic valve 2019
History of myocardial infarction
CKD IIIa
Diabetes
Hyperlipidemia
Hypertension
Postoperative atrial fibrillation
History of right bundle branch block
Likely cognitive impairment
Plan:
From cardiac standpoint, he looks modestly improved with resumption of diuretics. Continue IV Lasix for now, possibly transition to oral furosemide in 24 to 48 hours. Will review echo later today.
He denies additional hematochezia. Defer to hospitalist and GI. Diet has been advanced.
Continue Farxiga and furosemide. As outpatient we can decide if spironolactone is worthwhile.
From cardiac standpoint, would be okay with discharge in a.m., Provided echo looks good.
Original Note:
Today's Communication / Plan
-
Continue IV Lasix
Echo today
Check EKG
Check lipids in a.m.
Impression / Plan
-
Heel Seat Sander: Dr. Terell Mercer
Impression:
Presented 06/13/2025 with bright red blood per rectum
GI bleed
Acute on chronic heart failure with preserved ejection fraction,
Noncompliance with medications at home
Coronary artery disease with CABG x3, RODRIGUES to the LAD, SVG sequentially to RI and OM 1 in 2018
AVR bioprosthetic in 2019
Myocardial infarction pre-CABG in 2019
Renal insufficiency
Hyperlipidemia
Diabetes mellitus
Hypertension
Post op atrial fibrillation in 2019 (no recurrence)
Abnormal LFTs
Right bundle branch block
Cognitive decline.
Echocardiogram 06/22/2021 Ejection fraction 60%. Mild LVH. Stable bioprosthetic aortic valve with peak/mean gradients 20/9 mmHg. Dilated ascending aorta 4.1 cm. Trace MR. Trace TR.
Abdominal ultrasound 01/15/2023: Moderate to severe echogenicity liver possibly fatty liver with diffuse liver disease. Moderate to severe chronic bilateral renal disease.
Venous ultrasound 01/15/2023: Negative for DVT
Echo 01/17/2023: EF 65 to 70%, mild cLVH, mildly enlarged RV size, low normal RV function mild MR, bioprosthetic aortic valve peak/mean gradients 9/9 mmHg, no AI
Plan:
Presented 06/13/2025 with bright red blood per rectum
acute on chronic HFpEF likely due to noncompliance with taking medication including Lasix at home
-proBNP 90
-wt 277 lbs on admission, down 11 lbs overnight, now 266 lbs. when last seen in [facility] in 2022 wt was 248 lbs
-Continue with IV diuresis Lasix 40 mg daily
-Slight bump in BUN to 25, creatinine stable at 1.4. Continue to monitor with diuresis
-daily wts, input/output.
-EKG ordered as not performed on admission
-echocardiogram ordered but not completed to assess cardiac function, PA pressures and valve status
-No complaints of angina.
-Continue risk factor modification with history of CABG and prior MO
-Check lipids, goal LDL less than 55
Rectal bleeding
- Has been taking aspirin 325 mg twice daily for past 2 weeks, this could have contributed to current bleeding. Denies other NSAID use
- Hemoglobin 14.6 on admission, 13.3 06/14/2025. Continue to trend hemoglobin, currently within normal limits
-CTA abdomen pelvis with no active GI bleeding
-Starting PPI
- GI following
- No plan for GI workup
Discussed with and son at bedside
History of Present Illness 06/13/2025:
He is a 79-year-old man with history of coronary artery disease including CABG x3/AVR (2019), myocardial infarction, postop A-fib, hypertension, hyperlipidemia, chronic kidney disease, type 2 diabetes mellitus, heart failure preserved EF. He woke
up this morning around 2 AM and noted bright red blood per rectum. He had 4 subsequent episodes of bleeding overnight. He has been using aspirin 325 mg twice daily for the past 2 weeks for pain relief. He admits to noncompliance with his home
meds including diuretics. He does not take furosemide regularly due to urinary frequency. He reports he is compliant with other cardiac meds including farxiga and atorvastatin.
Pt admits to weight gain and dyspnea on exertion with steps. No PND or orthopnea. No chest pain, palpitations, lightheadedness, syncope. Has chronic bilateral lower extremity edema
Outpatient meds: Farxiga, atorvastatin, aspirin 81 mg (as above is has been taking 325 mg twice daily x 2 wks), Lasix 40 mg daily but not compliant with regular use, pantoprazole, glimepiride
ED workup:
Hemoglobin 14.6, BUN/creatinine 19/1.4, NA 140, K4.7, proBNP 90.1, TSH pending
CTA abdomen and pelvis: No evidence for GI bleeding, colonic diverticulosis, cholelithiasis.
Progress Note - Heel Seat Sander
Subjective
Date of Service: June 14, 2025
Objective
Labs:
06/14/25 05:19
06/14/25 05:19
Labs
Hgb 13.3 g/dL (13.0-18.0) 06/14/25 05:19
Hct 42.2 % (39.0-52.0) 06/14/25 05:19
Plt Count 223 10^3/uL (130-400) 06/14/25 05:19
PT 13.5 Sec (11.4-14.6) 06/13/25 09:51
INR 0.98 06/13/25 09:51
APTT 29.8 Sec (23.4-35.0) 06/13/25 09:51
Sodium 139 mmol/L (135-145) 06/14/25 05:19
Potassium 4.7 mmol/L (3.5-5.1) 06/14/25 05:19
BUN 25 mg/dl (9-20) H 06/14/25 05:19
Creatinine 1.4 mg/dL (0.7-1.3) H 06/14/25 05:19
Glucose 126 mg/dl (70-99) H 06/14/25 05:19
Troponins
06/14/25
05:19
Troponin I < 0.012
Vital Signs and I&O:
Vital Signs
Temp Pulse Resp BP Pulse Ox
98.2 F 79 14 108/72 95
06/14/25 11:55 06/14/25 11:55 06/14/25 11:55 06/14/25 11:55 06/14/25 11:55
Vital Signs
Temp Pulse Resp BP Pulse Ox
98.2 F 79 14 108/72 95
06/14/25 11:55 06/14/25 11:55 06/14/25 11:55 06/14/25 11:55 06/14/25 11:55
Intake & Output
06/12/25 06/13/25 06/14/25 06/15/25
06:59 06:59 06:59 06:59
Intake Total 480 / 480
Output Total 300 / 300
Balance 180 / 180
Physical Exam
Physical Exam
GEN: No distress, awake, Ox3, sitting in chair
HEENT: supple, anicteric, mmm
LUNGS: Crackles at bilateral bases CTA, no wheezes/rales
CV: Reg, S1/S2, 1/6 syst LSB, no murmur
ABD: soft, BS+, NT/ND
EXT: +2 bilateral pitting edema, no clubbing or cyanosis
NEURO: Gross non-focal
SKIN: No rash, warm, dry, pink
--- NOTE | 2025-06-14 14:12 | W.PN.GI.CBS2 ---
Today's Communication / Plan
-
gi signing off
Assessment / Plan
-
79 yo presents with hx NIDDM, ASCVD, with prior AVR, chronic lower extremity edema, medication noncompliance, abdominal distention, sciatica, CHF, chronic back pain, adenomatous colon polyps, fatty liver on ultrasound 2022, cholelithiasis who
presents to the emergency room with bright red blood per rectum in setting of high dose ASA. Hb stable (13-14). UTD with EGD/colo (2022). Suspect bleeding was hemorrhoidal could also have been diverticular.
Recommendations:
- OK reg diet
- No need PPI
- No need scope at this time
- Continue ASA 81 mg no need for high dose
D/w hospitalist
GI will sign off. Please call with changes in clinical status.
Please call with ?s.
Subjective
Subjective
Date of Service: June 14, 2025
Last BM recorded brown blood tinged yesterday
Per pt no blood in stool today
Objective
Data Reviewed
Laboratory Data:
Laboratory Results
06/14/25 05:19
06/14/25 05:19
Laboratory Results
PT 13.5 Sec (11.4-14.6) 06/13/25 09:51
INR 0.98 06/13/25 09:51
APTT 29.8 Sec (23.4-35.0) 06/13/25 09:51
Total Bilirubin 1.1 mg/dl (0.2-1.3) 06/13/25 09:51
AST 20 U/L (17-59) 06/13/25 09:51
ALT 22 U/L (0-50) 06/13/25 09:51
Alkaline Phosphatase 100 U/L (38-126) 06/13/25 09:51
Vital Signs and I&O:
Vital Signs
Temp Pulse Resp BP Pulse Ox
98.2 F 79 14 108/72 95
06/14/25 11:55 06/14/25 11:55 06/14/25 11:55 06/14/25 11:55 06/14/25 11:55
I&O
06/13/25 06/14/25 06/15/25
06:59 06:59 06:59
Intake Total 480 / 480
Output Total 300 / 300
Balance 180 / 180
Physical Exam
Physical Exam
GI: Distended and Non Tender
Neuro: Other (somewhat SOB)
[2025-06-14 16:46] LABS: Glucose - Point of Care 104 mg/dl (70-99)
[2025-06-14] MEDS: LIPITOR 80 MG PO (17:42)
[2025-06-14 21:43] LABS: Glucose - Point of Care 149 mg/dl (70-99)
[2025-06-15 03:00] VITALS: BP 143/73
[2025-06-15 05:42] VITALS: BMI 35.7
[2025-06-15 07:17] LABS: Hematocrit 39.3 % (39.0-52.0); Hemoglobin 12.9 g/dL (13.0-18.0); Mean Corp Hgb Conc. 32.8 g/dL (33.0-37.0); Mean Corpuscular Volume 86.2 fL (80.0-94.0); Nucleated Red Blood Cells % 0 % (-); Platelet Count 217 10^3/uL (130-400); Red Cell Dist. Width 14.7 % (11.5-14.5)
[2025-06-15 07:34] LABS: Blood Urea Nitrogen 25 mg/dl (9-20); Calcium 8.3 mg/dl (8.4-10.2); Carbon Dioxide 27 mmol/L (22-30); Chloride 104 mmol/L (98-107); Estimated Creatinine Clearance 54 ml/min; Glucose 135 mg/dl (70-99); HDL Cholesterol 30 mg/dl; LDL Cholesterol, Calculated 65 mg/dl; Potassium 4.0 mmol/L (3.5-5.1); Sodium 137 mmol/L (135-145); Very Low Density Lipoprotein 31 mg/dl (0-30); eGFR 47.36
[2025-06-15 08:03] VITALS: BP 159/75
[2025-06-15 08:11] LABS: Glucose - Point of Care 142 mg/dl (70-99)
[2025-06-15] MEDS: NOVOLOG FLEXPEN-LOW RESISTANCE SC (08:49)
[2025-06-15] MEDS: ASPIR LOW (ENTERIC COATED) 81 MG PO (09:06)
[2025-06-15] MEDS: LASIX 40 MG IV (09:06)
--- NOTE | 2025-06-15 09:34 | W.PN.CARDCBS ---
Today's Communication / Plan
-
Lasix 20 mg PO daily as outpatient
will sign off
Impression / Plan
-
Music Video Director: Dr. Terell Mercer
Impression:
Presented 06/13/2025 with bright red blood per rectum
GI bleed
Acute on chronic heart failure with preserved ejection fraction,
Noncompliance with medications at home
Coronary artery disease with CABG x3, RODRIGUES to the LAD, SVG sequentially to RI and OM 1 in 2019
AVR bioprosthetic in 2019
Myocardial infarction pre-CABG in 2019
Renal insufficiency
Hyperlipidemia
Diabetes mellitus
Hypertension
Post op atrial fibrillation in 2019 (no recurrence)
Abnormal LFTs
Right bundle branch block
Cognitive decline.
Echocardiogram 06/22/2021 Ejection fraction 60%. Mild LVH. Stable bioprosthetic aortic valve with peak/mean gradients 20/9 mmHg. Dilated ascending aorta 4.1 cm. Trace MR. Trace TR.
Abdominal ultrasound 01/15/2023: Moderate to severe echogenicity liver possibly fatty liver with diffuse liver disease. Moderate to severe chronic bilateral renal disease.
Venous ultrasound 01/15/2023: Negative for DVT
Echo 01/17/2023: EF 65 to 70%, mild cLVH, mildly enlarged RV size, low normal RV function mild MR, bioprosthetic aortic valve peak/mean gradients 9/9 mmHg, no AI
Echocardiogram June 14, 2025 normal left ventricular systolic function, moderate LVH, mildly dilated right ventricle with normal systolic function. Well-seated bioprosthetic aortic valve with peak and mean gradients of 20 and 15 mmHg. Compared
to study from January 17, 2023 no significant changes.
Plan:
Presented 06/13/2025 with bright red blood per rectum
Inpatient GI evaluation completed
From cardiac standpoint, overall improved with resumption of diuretics although proBNP was never elevated, proBNP on June 13, 2025 is 91.
Stop IV Lasix
Can discharge on Lasix 20 mg daily orally
Continue Farxiga.
As outpatient we can consider spironolactone.
From a cardiac standpoint, okay for discharge at any time.
Will sign off.
History of Present Illness 06/13/2025:
He is a 79-year-old man with history of coronary artery disease including CABG x3/AVR (2019), myocardial infarction, postop A-fib, hypertension, hyperlipidemia, chronic kidney disease, type 2 diabetes mellitus, heart failure preserved EF. He woke
up this morning around 2 AM and noted bright red blood per rectum. He had 4 subsequent episodes of bleeding overnight. He has been using aspirin 325 mg twice daily for the past 2 weeks for pain relief. He admits to noncompliance with his home
meds including diuretics. He does not take furosemide regularly due to urinary frequency. He reports he is compliant with other cardiac meds including farxiga and atorvastatin.
Pt admits to weight gain and dyspnea on exertion with steps. No PND or orthopnea. No chest pain, palpitations, lightheadedness, syncope. Has chronic bilateral lower extremity edema
Outpatient meds: Farxiga, atorvastatin, aspirin 81 mg (as above is has been taking 325 mg twice daily x 2 wks), Lasix 40 mg daily but not compliant with regular use, pantoprazole, glimepiride
ED workup:
Hemoglobin 14.6, BUN/creatinine 19/1.4, NA 140, K4.7, proBNP 90.1, TSH pending
CTA abdomen and pelvis: No evidence for GI bleeding, colonic diverticulosis, cholelithiasis.
Progress Note - Music Video Director
Subjective
Date of Service: June 15, 2025
No cp, sob, palps
Objective
Labs:
06/15/25 06:47
06/15/25 06:47
Labs
Hgb 12.9 g/dL (13.0-18.0) L 06/15/25 06:47
Hct 39.3 % (39.0-52.0) 06/15/25 06:47
Plt Count 217 10^3/uL (130-400) 10/04/25 06:47
PT 13.5 Sec (11.4-14.6) 06/13/25 09:51
INR 0.98 06/13/25 09:51
APTT 29.8 Sec (23.4-35.0) 06/13/25 09:51
Sodium 137 mmol/L (135-145) 06/15/25 06:47
Potassium 4.0 mmol/L (3.5-5.1) 06/15/25 06:47
BUN 25 mg/dl (9-20) H 06/15/25 06:47
Creatinine 1.5 mg/dL (0.7-1.3) H 06/15/25 06:47
Glucose 135 mg/dl (70-99) H 06/15/25 06:47
Troponins
06/14/25
05:19
Troponin I < 0.012
Vital Signs and I&O:
Vital Signs
Temp Pulse Resp BP Pulse Ox
98.1 F 74 16 159/75 94
06/15/25 08:03 06/15/25 08:03 06/15/25 08:03 06/15/25 08:03 06/15/25 08:03
Vital Signs
Temp Pulse Resp BP Pulse Ox
98.1 F 74 16 159/75 94
06/15/25 08:03 06/15/25 08:03 06/15/25 08:03 06/15/25 08:03 06/15/25 08:03
Intake & Output
06/13/25 06/14/25 06/15/25 06/16/25
06:59 06:59 06:59 06:59
Intake Total 480 / 480 1000 / 1000 480 / 480
Output Total 300 / 300 960 / 960 575 / 575
Balance 180 / 180 40 / 40 -95 / -95
Physical Exam
Physical Exam
Obese
NAD, well appearing
RRR, Nl S1 and S2, no S3 or S4, 1/6 BSEM, no rubs
Lungs CTA b/l
Ext +1 edema b/l
[2025-06-15] MEDS: FARXIGA 10 MG PO (09:38)
--- NOTE | 2025-06-15 10:39 | W.DS.TRANS ---
DC Summary - Alarm Service Technician
-
Discharge Instructions:
Sleep Apnea Risk High
Discharge Diagnosis/Procedures Diverticular bleeding, acute heart failure
exacerbation
Diet Diabetic, Carb Controlled,2 Gram Sodium
Activity As tolerated
Driving Restrictions No driving
Bathing Restrictions None
Instructions: *[facility] Heart Failure Instructions
Stand-Alone Forms:
Changes to Home Medications: No
Discharge Medications:
DC Medications w/original date entered in [facility]
atorvastatin 80 mg tablet (Lipitor) 80 mg PO QPM cholesterol 06/13/25
dapagliflozin propanediol 10 mg tablet (Farxiga) 10 mg PO DAILY Diabetes 06/13/25
glimepiride 1 mg tablet 1 mg PO DAILY Diabetes 06/13/25
pantoprazole 40 mg tablet,delayed release (Protonix) 40 mg PO DAILY Gastrointestinal Issue 06/13/25
aspirin 81 mg tablet,delayed release 81 mg PO DAILY #0 tabs 06/15/25
furosemide 20 mg tablet 20 mg PO DAILY #30 tabs 06/15/25
Home Medication Changes
Pending Results: No
[2025-06-15 11:10] VITALS: BP 132/85
--- NOTE | 2025-06-15 11:15 | W.PN.HOSP.TC ---
Today's Communication/Plan
-
Discharge
Assessment / Plan
Assessment / Plan
Gen-AAOx3, NAD
HEENT-NC, AT, anicteric, clear oral mm
Neck-supple
CV-reg, no M, +S1/S2
Lungs-clear B/L
Abd-soft, NT, ND
Ext-bilateral lower extremity edema
Musculoskeletal-no cyanosis, clubbing
Skin-warm and dry
Neuro-grossly non-focal
Psych-calm, cooperative
Acute lower GI bleed - Suspect etiology is high dose aspirin use as well as bleeding related to either diverticulosis or hemorrhoids.
CTA done today in the emergency room negative for active bleeding. Hemodynamically stable. Hemoglobin relatively stable. No significant bleeding in the hospital.
Spoke with GI, no plans for endoscopic evaluation. Advance to solid food.
Acute on chronic heart failure with preserved EF -due to noncompliance with home diuretics. Looks grossly volume overloaded. Mildly tachypneic. Clinically improving on IV Lasix, weight trending down. Lower extremity edema improving. Weight down
6 kg in the hospital.
Last echocardiogram done in January 2023 showed LVEF 65 to 70%, normal regional wall motion, mild concentric LVH, bioprosthetic aortic valve.
Follow I's and O's, daily weights.
Echocardiogram shows hyperdynamic LV systolic function, LVEF 75%, moderate concentric LVH, mildly dilated RV with normal systolic function. Well-seated bioprosthetic aortic valve.
BNP is normal but could be suppressed in the setting of obesity.
Cardiology recommends changing to Lasix 20 mg p.o. daily. Outpatient follow-up.
Postoperative atrial fibrillation -this was noted after AVR and CABG. Decision made at the time not to anticoagulate. According to last cardiology note, patient maintaining sinus rhythm and will keep off anticoagulation for now unless atrial
fibrillation recurs. EKG with sinus rhythm.
Bioprosthetic AVR
CKD 3a -stable.
CAD/CABG -stable.
DM 2 with hyperglycemia - hemoglobin A1c 7.1%. He has been on Farxiga and glimepiride prior to admission. Resume glimepiride on discharge.
Essential hypertension -stable.
Hyperlipidemia -atorvastatin.
Obesity due to excess calories
Full code
PT/OT -Home health recommended.
Dispo -medically stable for discharge home today. Outpatient follow-up. Compliance with home medications stressed to patient today including furosemide use.
35 minutes spent in discharge process.
Anticipated Discharge: Today
Subjective/Interval History
-
Date of Service: June 15, 2025
Patient seen and examined. No complaints.
Objective Data
-
Labs:
Laboratory Results
06/15/25
06:47
WBC 9.2
Hgb 12.9 L
Hct 39.3
Plt Count 217
Sodium 137
Potassium 4.0
Chloride 104
Carbon Dioxide 27
BUN 25 H
Creatinine 1.5 H
Glucose 135 H
Calcium 8.3 L
Vital Signs:
Vital Signs
Temp Pulse Resp BP Pulse Ox
97.7 F 77 16 132/85 97
06/15/25 11:10 06/15/25 11:10 06/15/25 11:10 06/15/25 11:10 06/15/25 11:10
I&O
06/14/25 06/15/25 06/16/25
06:59 06:59 06:59
Intake Total 480 / 480 1000 / 1000 480 / 480
Output Total 300 / 300 960 / 960 575 / 575
Balance 180 / 180 40 / 40 -95 / -95
Review of Systems
-
History Source: Patient
All other systems: Reviewed and negative
[2025-06-15 11:50] LABS: Glucose - Point of Care 198 mg/dl (70-99)
[2025-06-15] MEDS: NOVOLOG FLEXPEN-LOW RESISTANCE 1 UNITS SC (11:51)
--- NOTE | 2025-06-15 12:07 | CM ---
Plan is for home today, list of local PCP's provided to patient along with [facility] flier.
Home today, family to transport to home.
--- NOTE | 2025-06-17 14:48 | W.HF.CON ---
Heart Failure
- LV Function
Left ventricular function study result: LV Ejection fraction >/= 50%
Ejection Fraction Percentage: 75
- ARNI
Patient already on ARNI: No
Heart Failure ARNI Not Indicated: LV Ejection Fraction >/= 40%
- ACEI/ARB
Patient already on ACEI/ARB: No
Heart Failure ACEI/ARB Not Indicated: LV Ejection Fraction > 40%
- Beta Katya
Patient already on Evidence Based Beta Katya: No
Heart Failure Evidence Based Beta Katya Not Indicated: LV Ejection Fraction > 40%
- Mineralocorticord Receptor Antagonist
Patient already on MRA: No
Heart Failure MRA Not Indicated: LV Ejection Fraction > 40%
- SGLT-2 Inhibitor
Patient already on SGLT-2 Inhibitor: Yes
- NYHA CHF Classification
NYHA CHF Classification Level: Class III - Symptoms w/ min exertion, interferes w/ nml daily activity
- ACC/AHA Stage
ACC/AHA Stage: Stage C: Symptomatic Heart Failure
== END 2025-06-15 13:51 | disposition home or self-care (01) | DRG 377 ==
LOC: 3 WEST ACU 13:01
PROVIDERS: Physician Assistant Medical; ADMITTING PHYSICIAN Hospitalist; CONSULT PHYSICIAN Internal Medicine Cardiovascular Disease; CONSULT PHYSICIAN Internal Medicine Gastroenterology; EMERGENCY PHYSICIAN Emergency Medicine
DX: K57.33 Diverticulitis of large intestine without perforation or abscess with bleeding (principal); I50.33 Acute on chronic diastolic (congestive) heart failure; I13.0 Hypertensive heart and chronic kidney disease with heart failure and stage 1 through stage 4 chronic kidney disease, or unspecified chronic kidney disease; Z87.891 Personal history of nicotine dependence; N18.31 Chronic kidney disease, stage 3a; I48.91 Unspecified atrial fibrillation; E11.65 Type 2 diabetes mellitus with hyperglycemia; I25.10 Atherosclerotic heart disease of native coronary artery without angina pectoris; Z95.1 Presence of aortocoronary bypass graft; E66.09 Other obesity due to excess calories; Z68.35 Body mass index [BMI] 35.0-35.9, adult; Z79.82 Long term (current) use of aspirin; Z95.3 Presence of xenogenic heart valve; I50.82 Biventricular heart failure; Z91.148 Patient's other noncompliance with medication regimen for other reason; D12.2 Benign neoplasm of ascending colon; E11.22 Type 2 diabetes mellitus with diabetic chronic kidney disease; K31.7 Polyp of stomach and duodenum; Z79.899 Other long term (current) drug therapy
CPT/HCPCS: 74174; 80048; 80053; 80061; 82962; 83036; 83880; 84443; 84484; 85025; 85610; 85730; 86850; 86900; 86901; 93005; 93306; 97116; 97162; 97166; 99285; Q9950; Q9967